=== PATIENT | female | born 1955 | race Caucasian/White ===

== ENCOUNTER 2020-12-08 09:43 | Outpatient (CLI) | payer OTHER, SELFPAY ==
--- NOTE | ~2020-12-08 | DEXA_ITS ---
Bone Density Report Name: Lynn Miranda Age: 65 Sex: Female Ethnicity: White Date of : 1955 Indication: postmenopausal; cancer; Referring Provider: Monisha Nichole Study: Bone densitometry was performed. Exam Date: December 08, 2020 Accession number: [id number] Bone Density: Region BMD T-score Z-score Classification AP Spine (L1-L4) 0.952 -0.9 0.8 Normal Femoral Neck (Left) 0.688 -1.4 0.0 Osteopenia Total Hip (Left) 0.814 -1.0 0.1 Normal Total Hip Bilateral Avg 0.831 -0.9 0.3 Normal Femoral Neck (Right) 0.661 -1.7 -0.3 Osteopenia Total Hip (Right) 0.846 -0.8 0.4 Normal World Health Organization criteria for BMD impression classify patients as: Normal (T-score at or above -1.0), Osteopenia (T-score between -1.0 and -2.5), or Osteoporosis (T-score at or below -2.5). 10-year Fracture Risk(1): Major Osteoporotic Fracture 9.0% Hip Fracture 1.0% Reported Risk Factors: [place] (), Neck BMD=0.661, BMI=24.4 (1) FRAX(R) Version 3.08. Fracture probability calculated for an untreated patient. Fracture probability may be lower if the patient has received treatment. Clinical Information Provided by Patient: Has used the following medications: Vitamin D, Calcium Has the following medical conditions: Cancer Patient maximum height was 63 Menopause Age: 55 Drinks caffeinated beverages Onset of menses at age 14 Number of children 2 Impression: The patient has low bone mass, based on the Right Femoral Neck T-score. The patient has an estimated ten-year risk of hip fracture of 1% and an estimated ten-year risk of major fracture of 9%, based on the WHO FRAX algorithm. Discussion: BONE DENSITY IS LOW AT ONE OR MORE SKELETAL SITES. This patient's lowest T-score is low at one or more skeletal sites. It meets the World Health Organization's (WHO) criteria for ?low bone mass? (T-score between -1.0 and -2.5). The patient's 10-year risk of fracture as calculated by FRAX is less than the threshold where pharmacological therapy is recommended by the National Osteoporosis Foundation (NOF). However, all treatment decisions require clinical judgment and consideration of individual patient factors, including patient preferences, comorbidities, previous drug use, risk factors not captured in the FRAX model (e.g., frailty, falls, vitamin D deficiency, increased bone turnover, interval significant decline in bone density) and possible under or overestimation of fracture risk by FRAX. The patient should follow a healthful lifestyle (good nutrition with adequate calcium and vitamin D, and appropriate weight-bearing exercise). Follow-Up: Consider repeating this study in 2 to 3 years to reassess this patient's status, or sooner if there is some new clinical indication. Reported by: CHANDANA on 12/08/2020 9:56:00 AM.
== END 2020-12-08 09:44 | disposition home or self-care (01) ==
LOC: ANHIMG 09:44
PROVIDERS: PCP Family Medicine; Visit Provider Student in an Organized Health Care Education/Training Program
DX: Z78.0 Asymptomatic menopausal state (principal); M85.89 Other specified disorders of bone density and structure, multiple sites
CPT/HCPCS: 77080

== ENCOUNTER 2022-12-10 07:46 | Outpatient (CLI) | payer MEDICARE, OTHER, SELFPAY ==
--- NOTE | ~2022-12-10 | DEXA_ITS ---
Bone Density Report Name: GAGANDEEP FRANCO Age: 67 Sex: Female Ethnicity: White Date of : 1955 Indication: postmenopausal; screening for osteoporosis; cancer; Referring Provider: MARLENY DAMON Study: Bone densitometry was performed. Exam Date: December 10, 2022 Accession number: [id number] Bone Density: Region BMD T-score Z-score Classification AP Spine(L1-L4) 0.949 -0.9 0.9 Normal Femoral Neck (Left) 0.659 -1.7 -0.2 Osteopenia Total Hip (Left) 0.774 -1.4 -0.1 Osteopenia Femoral Neck (Right) 0.697 -1.4 0.2 Osteopenia Total Hip (Right) 0.814 -1.1 0.2 Osteopenia Total Hip Mean 0.794 -1.3 0.1 Osteopenia World Health Organization criteria for BMD impression classify patients as: Normal (T-score at or above -1.0), Osteopenia (T-score between -1.0 and -2.5), or Osteoporosis (T-score at or below -2.5). 10-year Fracture Risk(1): Major Osteoporotic Fracture 9.6% Hip Fracture 1.2% Reported Risk Factors: [place] (), Neck BMD=0.659, BMI=24.1 (1) FRAX(R) Version 3.08. Fracture probability calculated for an untreated patient. Fracture probability may be lower if the patient has received treatment. Previous Exams: Region Exam Age BMD T-score BMD Change BMD Change Date g/cm2 vs Baseline vs Previous AP Spine (L1-L4) 12/10/2022 67 0.949 -0.9 -0.003 (-0.3%) -0.003 (-0.3%) 12/08/2020 65 0.952 -0.9 Total Hip(Left) 12/10/2022 67 0.774 -1.4 -0.040 (-4.9%) -0.040 (-4.9%) 12/08/2020 65 0.814 -1.0 Total Hip(Right) 12/10/2022 67 0.814 -1.1 -0.032 (-3.8%) -0.032 (-3.8%) 12/08/2020 65 0.846 -0.8 *Denotes significance at 95% confidence level, LSC for AP Spine = 0.022 g/cm2, LSC for Total Hip = 0.027 g/cm2 # Denotes dissimilar scan types or analysis methods Clinical Information Provided by Patient: Has used the following medications: Calcium Has the following medical conditions: Cancer Patient maximum height was 63.5 Menopause Age: 55 Drinks caffeinated beverages Onset of menses at age 15 Number of children 2 Impression: The patient has low bone mass, based on the Left Femoral Neck T-score. The patient has an estimated ten-year risk of hip fracture of 1.2% and an estimated ten-year risk of major fracture of 9.6%, based on the WHO FRAX algorithm. No significant bone loss was observed. Discussion: BONE DENSITY IS LOW AT ONE OR MORE SKELETAL SITES. This patient's lowest T-score is low at one or more skeletal
== END 2022-12-10 07:47 | disposition home or self-care (01) ==
LOC: ANHIMG 07:47
PROVIDERS: PCP Family Medicine; Visit Provider Obstetrics & Gynecology
DX: Z78.0 Asymptomatic menopausal state (principal); M85.89 Other specified disorders of bone density and structure, multiple sites
CPT/HCPCS: 77080

== ENCOUNTER 2024-12-11 08:23 | Outpatient (CLI) | payer MEDICARE, SELFPAY ==
--- NOTE | ~2024-12-11 | DEXA_ITS ---
Bone Density Report Name: GAGANDEEP FRANCO Age: 69 Sex: Female Ethnicity: White Date of : 1955 Indication: postmenopausal; screening for osteoporosis; cancer; Referring Provider: UNKNOWN, UNKNOWN Study: Bone densitometry was performed. Exam Date: December 11, 2024 Accession number: [id number] Bone Density: Region BMD T-score Z-score Classification AP Spine(L1-L4) 0.962 -0.8 1.2 Normal Femoral Neck (Left) 0.568 -2.5 -0.9 Osteoporosis Total Hip (Left) 0.809 -1.1 0.3 Osteopenia Femoral Neck (Right) 0.640 -1.9 -0.2 Osteopenia Total Hip (Right) 0.822 -1.0 0.4 Normal Femoral Neck Mean 0.604 -2.2 -0.6 Osteopenia Total Hip Mean 0.815 -1.0 0.3 Normal World Health Organization criteria for BMD impression classify patients as: Normal (T-score at or above -1.0), Osteopenia (T-score between -1.0 and -2.5), or Osteoporosis (T-score at or below -2.5). 10-year Fracture Risk: FRAX not reported because: Some T-score for Spine Total or Hip Total or Femoral Neck at or below -2.5 Clinical Information Provided by Patient: Has used the following medications: Calcium Has the following medical conditions: Cancer Patient maximum height was 63 Menopause Age: 52 Drinks caffeinated beverages Onset of menses at age 14 Number of children 2 Impression: The patient has osteoporosis, based on the Left Femoral Neck T-score. Discussion: INCREASED RISK OF FRACTURE. BONE DENSITY IS UNDESIRABLY LOW AT ONE OR MORE SKELETAL SITES, CONSISTENT WITH POSTMENOPAUSAL OSTEOPOROSIS. This patient's lowest T-score meets the World Health Organization's (WHO) criteria for osteoporosis at one or more sites (T-score -2.5 or below). In untreated patients, the risk of osteoporotic fracture increases approximately two-fold for each 1.0 SD decrease in T-score. Low bone density is not the only risk factor for fracture; also consider factors such as patient's age, frailty or poor health, risk of falling, risk of injury, previous osteoporotic fracture, family history of osteoporosis, cigarette smoking, low body weight, etc. Not everyone with low bone mineral density has osteoporosis; osteomalacia and other metabolic bone disorders should also be considered. Patients who have osteoporosis should be evaluated for specific diseases and conditions (secondary causes) that may cause or contribute to bone loss. The [place] [employer]ocrinologists (AACE) and National Osteoporosis Foundation (NOF) recommend pharmacologic intervention for all postmenopausal women whose T-score is in this range. The patient should follow a healthful lifestyle (good nutrition with adequate calcium and vitamin D, and appropriate weight-bearing exercise). Follow-Up: Consider a repeat BMD and Vertebral Fracture Assessment (VFA) exam in 2 years or sooner if medically necessary, to reassess this patient's status. Reported by: TEQUILA on 12/11/2024 8:49:00 AM. Reviewed, dictated and finalized at location A.
--- OUTSIDE RECORDS SUMMARY | 2024-12-11 08:45 | XMS_ITS | Clinical Summary ---
Author Organization [facility] Address [address] [place] [address] Care Team Providers Care Vessel Liner Name Role Phone Unavailable Primary Care Provider Unavailabl e Social History Tobacco Use Types Packs/Day Years Used Date Smoking Tobacco: Never Assessed Comments Unknown Sex and Gender Information Value Date Recorded Sex Assigned at Not on file Legal Sex Female 4:30 PM CDT Gender Identity Not on file Sexual Orientation Not on file Plan of Treatment Health Maintenance Due Date Last Done Comments Colorectal Cancer Screening Colonoscopy (10 Years) 1955 Hepatitis C 1975 DTaP, Tdap and Td Vaccines ( 1 - Tdap) 1976 Mammogram Screening 1997 Zoster Vaccines (1 of 2) 2007 Dexa Scan (General) 2022 Pneumococcal Vaccine: 65+ Ye ars (1 of 1 - PCV) 2022 COVID-19 Vaccine ( - 2023-2 5 season) 2024 Influenza Adult (#1) 2024 RSV Immunization or 60+ Years (1 - 1-dose 75+ series) 2032 Meningococcal B Vaccine Aged Out No l onger eligible based on patient's age to complete this topic Meningococcal Vaccine Aged Out No vivienne aleja eligible based on patient's age to complete this topic RSV Immunizations Under 20 Months Aged Out No longer eligible based on patient's age to complete this topic
--- OUTSIDE RECORDS SUMMARY | 2024-12-11 08:45 | XMS_ITS | Clinical Summary ---
Author Organization [facility] Address [address] [place] [address] Phone Care Team Providers Care Tai Chi Instructor Name Role Phone Amor Green MD Primary Care Provider [phone] Allergies Active Allergy Reactions Criticality Noted Date Comments Sulfa (Sulfonamide Antibiotics) Swelling Low 06/2015 Medications aspirin (MELANIE) 81 mg Oral Tab Take by mouth. Active Cephalexin 500 mg Tablet Take 250 mg by mouth. ONE A DAY FOR 3 MONTHS Active multivitamin (DAILY-DONTE) tablet Take 1 Tablet by mouth daily. Active CALCIUM CARBONATE ORAL Take by mouth. 1,ooo mg daily Active anastrozole (ARIMIDEX) 1 mg tabletIndication s:Malignant neoplasm of upper-outer quadrant of right breast in female, estrogen receptor positive (CMS/HCC) TAKE 1 TABLET BY MOUTH EVERY DAY 90 Tablet 1 08/20/2024 Active estradioL (ESTRACE) 0.01% (0.1 mg/g) vaginal cream Insert 1 Gram vaginally. 07/12/2024 Active pentoxifylline (TRENtal) 400 mg Extended Release tablet Take 1 Tablet (400 mg) by mouth 3 times daily. 30 Tablet 5 08/22/2024 Active vitamin E 1,000 unit Capsule Take 1,000 Units by mouth daily. Active Active Problems Patient Care Coordination No te Formatting of this note migh t be different from the original. Primary Care: Amor Green MD Referring Provider: Henrietta Rose MD [address] [place] [address] Other: Problem Noted Date Diagnosed Date Cellulitis of breast 07/15/2024 Leukocytosis (leucocytosis) 07/15/2024 S/P bilateral mastectomy 12/08/2015 BRCA negative 10/11/2014 Genetic testing 10/03/2013 Overview (11/07/2013): brca neg, ramandeep neg Breast Cancer, Right UOQ (174.4) T3N2 right 09/02 Overview (03/21/2012): Right Breast Pathologic Stage IIIA (T3 N2a Mx) ER/ME(+), H2N(-), Ki67 11% MRM/Recon (08/30/11 - Yanick/David): 7 cm G2 IDC, 65% DCIS, (-)mar (8 mm post), extensive ALI, 03/20 AxLNs (1.2 cm, MAGUI) Med Onc ([facility]man): DD AC + Taxol (fini 01/11/12) RT (Baglan): 02/08-03/21/12 Right Chestwall 5040 cGy in 180 cGy x 28 fx Right SC/AxApex 5040 cGy in 180 cGy x 28 fx PATHOLOGY: Date: 07/14/11 bx, 08/30/11 bilat mast with R SLN and ALND Breast:right Cell type: IDC, 7.0 cm ER: (+) 8/8 ME: (+) 7/8 Ki67: 11% Her2 kwame: (not) amplified Grade: IG (NH6) Lymph node status:(+) 6/8 SLN, 0/10 ALN = 18 with MAGUI LVI: (not) present Staging: T3 N2 Mx Stage: IIIa Breast cancer 07/28/2011 Overview (07/28/2011): Invasive ductal with extensive DCIS right breast clinically T1 or T2 N0 Resolved Problems Problem Noted Date Diagnosed Date Resolved Date Pre-op testing 08/13/2011 10/11/2014 Invasive ductal carcinoma of breast 07/28/2011 Encounters Date Type Department Care Team Description 12/03/[address] [facility] Oncology and Hematology - [place] [address] [address] Julia Whitaker V., DO Malignant neoplasm of upper-outer quadrant of right breast in female, estrogen receptor positive (CMS/HCC) (Primary Dx); History of aromatase inhibitor therapy; Screening for osteoporosis; Encounter for osteoporosis screening in asymptomatic postmenopausal patient 11/20/2024 External Device Data ST[facility] ABSTRACTION Provider, Abstract 11/13/2024 External Device Data [facility] ABSTRACTION Provider, Abstract 11/13/2024 External Device Data ST[facility] ABSTRACTION Provider, Abstract 10/25/2024 External Device Data [facility] ABSTRACTION Provider, Abstract 10/16/2024 External Device Data ST[facility] ABSTRACTION Provider, Abstract 10/09/2024 External Device Data STL ABSTRACTION Provider, Abstract from Last 3 Months Immunizations Immunization Administration Dates Next Due Influenza Seasonal Unspecified Formulation IM Family History Medical History Relation Name Comments Ovarian Cancer Maternal Cousin 1 50's Breast Cancer Maternal Cousin 2 50's Colon Cancer Maternal Grandmother 80's Diabetes Maternal Grandmother Colon Cancer Mother 60's Breast Cancer Other 1 second cousin 40's Breast Cancer Other 2 2nd cousin 50' s Breast Cancer Paternal Grandmother Relation Name Status Comments Maternal Cousin 1 Maternal Cousin 2 Maternal Grandmother Mother Other 1 Other 2 Paternal Grandmother Social History Tobacco Use Types Packs/Day Years Used Date Smoking Tobacco: Never Smokeless Tobacco: Never Tobacco Cessation:Counseling Given: Not Answered Alcohol Use Standard Drinks/Week Comments Yes 0 (1 standard drink = 0.6 oz pur e alcohol) moderate Feeling Safe Answer Date Recorded Within the last year, have y ou been afraid of your partner or ex-partner? No 05/24/2024 Emotionally Abused Not on file 05/24/2024 Within the last year, have y ou been kicked, hit, slapped, or otherwise physically hurt by your partner or ex-partner? No 05/24/2024 Sexually Abused Not on file 05/24/2024 Feeling Safe Answer Date Recorded Are you in a relationship wi th someone who hurts you emotionally and/or physically? No 09/06/2024 Food Insecurity Answer Date Recorded Social/Environmental Concerns No concerns Transportation Needs Answer Date Record ed Social/Environmental Concerns No concerns Housing Stability Answer Date Recorded Social/Environmental Concerns No concerns Utility Needs Answer Date Recorded Social/Environmental Concerns No concerns Comments No Sex and Gender Information Value Date Recorded Sex Assigned at Female 07/27/2024 6:39 AM CDT Legal Sex Female 6:04 AM ANALYZER SALES Gender Identity Female 07/27/2024 6:39 AM CDT Sexual Orientation Straight 07/27/2024 6: 39 AM CDT Occupation Industry Job Start Date Job End Date Not on file Not on file Not on file Not on file Not on file Not on file Not on file Not on file Last Filed Vital Signs Vital Sign Reading Time Taken Comments Blood Pressure 138/74 09/06/2024 7:00 AM ANALYZER SALES Pulse 74 09/06/2024 7:00 AM ANALYZER SALES Temperature 36.4 C (97.6 F) 09/06/2024 7:00 AM ANALYZER SALES Respiratory Rate 16 09/06/2024 7:00 AM ANALYZER SALES Oxygen Saturation 99% 08/22/2024 8:12 AM ANALYZER SALES Inhaled Oxygen Concentration - - Weight 63.2 kg (139 lb 6.4 oz) 09/06/2024 7:00 A M ANALYZER SALES Height 161.3 cm (5' 3.5 ) 08/22/2024 8:12 AM ANALYZER SALES Body Mass Index 24.31 08/22/2024 8:12 AM ANALYZER SALES Plan of Treatment Upcoming Encounters Date Type Department Care Team (Late st Contact Info) Description 07/11/2025 10:00 AM CDT Office Visit [facility] [address] [place] [address] Julia Whitaker DO [address] [place] [address] Health Maintenance Due Date Last Done Comments DTAP/TDAP/TD VACCINES (1 - Tdap) 1976 FIT-DNA Q 3 years 2002 FIT/FOBT Q 1 year 2002 Flex Sig/CT Colonography Q 5 years 2002 PNEUMOCOCCAL VACCINE 50+ YEA RS (1 of 1 - PCV) 2007 BREAST CANCER SCREENING 01/17/2018 01/18/20 17, 12/08/2015, 12/08/2015, Additional history exists ZOSTER VACCINE (2 of 3) 11/26/2019 10/01/2019 INFLUENZA VACCINE (#1) 2024 , 06/07/2020, 08/21/2014, Additional history exists COVID-19 Vaccine (3 - 2023-2 5 season) 2024 01/13/2021, 12/18/2020 RSV VACCINE (60+ or ) (1 - 1-dose 75+ series) 2032 COLORECTAL SCREENING 09/02/2033 09/02/2023, 09/02/2023, 09/01/2018, Additional history exists Colorectal Cancer Screening 09/02/2033 OSTEOPOROSIS SCREENING Completed 12/10/2022, 2011 Medical Devices Implanted Type Area Web Applications Programmer Device Identifier Shelf Expiration Date Model / Serial / Lot Port Pwrprt Slim Chrnflx Cath 6fr [id number] Implanted:Qty: 1 on 10/18/2011 by Ladonna Arroyo MD at [facility] Right: Neck CR BARD- ACCESS SYS 03/18/2016 [id number] / / [id number] Procedures Procedure Name Priority Date/Time Associated Diagnosis Comments XR DEXA BONE DENSITY AXIAL 1 OR MORE SITES Routine 06/20/2012 9:48 AM CDT Breast cancer (CMS/HCC) Special screening for osteoporosis MAMMO DIAGNOSTIC UNI RIGHT W OR WO CAD Routine 07/14/2011 1:46 PM CDT Abnormal mammogram from Last 3 Months or Most Recently Relevant to Health Maintenance Results * XR DEXA BONE DENSITY AXIAL 1 OR MORE SITES (06/20/2012 9:48 AM CDT) Anatomical Region Laterality Modality Computed Radiogr aphy 06/20/2012 9:47 AM CDT Impressions 06/20/2012 9:54 AM CDT IMPRESSION: Lumbar spine: This patient's bone mineral density of the spine is normal when compared to the normal range of young adults. The patient is at low risk for a compression fracture. Hips: This patient's bone mineral density of the femoral neck is osteopenic when compared to the normal range of young adults. The patient is at low risk for a hip fracture. Comments: None. Detailed report to follow. Dictated by Dr. Evens Garcia MD Narrative 06/20/2012 9:54 AM CDT Examination: Bone Density Study (DEXA) Clinical History: 57 year-old postmenopausal female. Findings: Lumbar Spine ( L 1-4 ) spine bone mineral density is 1.23 g/sq cm and corresponds to a T-score of 0.4. Femoral neck densities: Left femoral neck bone mineral density is 0.85 g/sq cm and corresponds to a T-score of -1.3. Right femoral neck bone mineral density is 0.85 g/sq cm and corresponds to a T-score of -1.3. Average femoral neck bone mineral density is 0.85 g/sq cm and corresponds to a T-score of -1.3. Procedure Note Evens Garcia MD - 06/20/2012 Examination: Bone Density Study (DEXA) Clinical History: 57 year-old postmenopausal female. Findings: Lumbar Spine ( L 1-4 ) spine bone mineral density is 1.23 g/sq cm and corresponds to a T-score of 0.4. Femoral neck densities: Left femoral neck bone mineral density is 0.85 g/sq cm and corresponds to a T-score of -1.3. Right femoral neck bone mineral density is 0.85 g/sq cm and corresponds to a T-score of -1.3. Average femoral neck bone mineral density is 0.85 g/sq cm and corresponds to a T-score of -1.3. IMPRESSION IMPRESSION: Lumbar spine: This patient's bone mineral density of the spine is normal when compared to the normal range of young adults. The patient is at low risk for a compression fracture. Hips: This patient's bone mineral density of the femoral neck is osteopenic when compared to the normal range of young adults. The patient is at low risk for a hip fracture. Comments: None. Detailed report to follow. Dictated by Dr. Evens Garcia MD Julia Whitaker DO DIAGNOSTIC IMAGING ORDERABL ES Final Result * MAMMO DIGITAL DIAG UNI RIGHT (07/14/2011 1:46 PM CDT) Anatomical Region Laterality Modality Breast Right Mammography 07/14/2011 1:45 PM CDT Impressions 07/15/2011 7:52 AM CDT IMPRESSION: Status post a sonographically guided core biopsy of a mass with calcifications in the upper-outer right breast. Pathology pending. Narrative 07/15/2011 7:52 AM CDT SONOGRAPHICALLY GUIDED CORE BIOPSY History: Mass with calcifications upper outer right breast on outside exam Sonographically guided core biopsy of a hypoechoic mass with calcifications in the upper outer right breast was performed. The overlying skin was cleansed with Betadine. 1% lidocaine buffered with sodium bicarbonate was injected for superficial anesthesia. Deep anesthesia was obtained with 2% lidocaine with epinephrine. A small 4 mm skin cassi was made with 11 blade scalpel. Under sonographic guidance, a 10-gauge vacuum assisted core biopsy needle was inserted through the skin cassi and positioned adjacent to the mass. Multiple cores were obtained. Cores were placed in a vial of physiologic saline. Formalin was added at the end of the exam and the specimen sent to pathology. A post biopsy localization clip was deployed under sonographic guidance. Followup two view mammogram demonstrated the clip to be in satisfactory position. A specimen radiograph of the cores was obtained demonstrating calcifications in at least one of the cores. After the biopsy was completed, pressure was held over the site until all visible signs of bleeding had subsided. The incision was closed with Dermabond and a Steri-Strip. Icepack was given for comfort. Postbiopsy instructions were reviewed with the patient. She left the breast center in good condition. Procedure Note Mtia Loza MD - 07/15/2011 SONOGRAPHICALLY GUIDED CORE BIOPSY History: Mass with calcifications upper outer right breast on outside exam Sonographically guided core biopsy of a hypoechoic mass with calcifications in the upper outer right breast was performed. The overlying skin was cleansed with Betadine. 1% lidocaine buffered with sodium bicarbonate was injected for superficial anesthesia. Deep anesthesia was obtained with 2% lidocaine with epinephrine. A small 4 mm skin cassi was made with 11 blade scalpel. Under sonographic guidance, a 10-gauge vacuum assisted core biopsy needle was inserted through the skin cassi and positioned adjacent to the mass. Multiple cores were obtained. Cores were placed in a vial of physiologic saline. Formalin was added at the end of the exam and the specimen sent to pathology. A post biopsy localization clip was deployed under sonographic guidance. Followup two view mammogram demonstrated the clip to be in satisfactory position. A specimen radiograph of the cores was obtained demonstrating calcifications in at least one of the cores. After the biopsy was completed, pressure was held over the site until all visible signs of bleeding had subsided. The incision was closed with Dermabond and a Steri-Strip. Icepack was given for comfort. Postbiopsy instructions were reviewed with the patient. She left the breast center in good condition. IMPRESSION IMPRESSION: Status post a sonographically guided core biopsy of a mass with calcifications in the upper-outer right breast. Pathology pending. us Shana Herndon MD MAMMO ORDERABLES Final Result from Last 3 Months or Most Recently Relevant to Health Maintenance Insurance AET[employer] [facility] RX A[employer] Medicare Part D Advance Directives For more information, please contact: [phone] * Full Code (Latest Code Status on File) Date Activated Date Inactivated Comments 07/15/2024 1:38 PM 07/16/2024 1:02 PM * Full Code Date Activated Date Inactivated Comments 02/04/2012 6:51 AM 02/04/2012 11:18 AM * Full Code Date Activated Date Inactivated Comments 02/04/2012 6:50 AM 02/04/2012 6:51 AM * Full Code Date Activated Date Inactivated Comments 10/18/2011 8:53 AM 10/18/2011 1:44 PM Care Teams Tai Chi Instructor Relationship Specialty Start Date End Date Amor Green MD PCP - General Family Practice 10/19/13
--- OUTSIDE RECORDS SUMMARY | 2024-12-11 08:45 | XMS_ITS | Referral Summary ---
Author Organization [facility] Address [address] [place] [address] Care Team Providers Care Digital Imaging Specialist Name Role Phone Amor Green MD Primary Care Provider [phone] Source Comments [facility],non-owned Affiliates and Associated Physician Practices is amultiple site organization consisting of ambulatory clinics and hospital sitesin [place], [place], [place] and [place]. This disclosure is being madepursuant to the Care Everywhere program and may not contain all information available regarding this patient. Last updated [facility] Allergies Active Allergy Reactions Criticality Noted Date Comments Sulfa Drugs 09/06/2017 Medications * Be aware that medications may not be up to date on this document. Alwaysverify current medications with the patient. Medication Sig Dispensed Refills Start Date End Date Status ANASTROZOLE PO Active cephalexin (KEFLEX) 500 MG capsule Take 500 mg by mouth once daily Active Aspirin (ASPIR-81) 81 MG Active benzonatate (TESSALON) 200 MG capsuleIndications:Acut e nasopharyngitis (common cold) Take 1 capsule by mouth 3 times daily as needed for Cough 30 capsule 09/06/2017 Active Social History Tobacco Use Types Packs/Day Years Used Date Smoking Tobacco: Never Assessed Sex and Gender Information Value Date Recorded Sex Assigned at Not on file Gender Identity Not on file Sexual Orientation Not on file Last Filed Vital Signs Vital Sign Reading Time Taken Comments Blood Pressure 114/76 09/06/2017 9:35 AM WATER RESOURCE ENGINEER Pulse 91 09/06/2017 9:35 AM WATER RESOURCE ENGINEER Temperature 36.8 C (98.2 F) 09/06/2017 9:35 AM WATER RESOURCE ENGINEER Respiratory Rate - - Oxygen Saturation - - Inhaled Oxygen Concentration - - Weight 59 kg (130 lb) 09/06/2017 9:35 AM WATER RESOURCE ENGINEER Height 161.3 cm (5' 3.5 ) 09/06/2017 9:35 AM WATER RESOURCE ENGINEER Body Mass Index 22.67 09/06/2017 9:35 AM WATER RESOURCE ENGINEER Plan of Treatment Not on file Care Teams Digital Imaging Specialist Relationship Specialty Start Date End Date Amor Green MD [address] [place] [address] [id number] PCP - General Internal Medicine 09/06/17
--- OUTSIDE RECORDS SUMMARY | 2024-12-11 08:45 | XMS_ITS | Clinical Summary ---
Author Organization [employer] Address [address] [address] Care Team Providers Care Cab Supervisor Name Role Phone Amor Green MD Primary Care Provider [phone] Source Comments [facility],non-owned Affiliates and Associated Physician Practices is amultiple site organization consisting of ambulatory clinics and hospital sitesin [place], [place], [place] and [place]. This disclosure is being madepursuant to the Care Everywhere program and may not contain all information available regarding this patient. Last updated 18.[facility] Allergies Active Allergy Reactions Criticality Noted Date [...] Comments Blood Pressure 114/76 09/06/2017 9:35 AM INDUSTRIAL ORDER CLERK Pulse 91 09/06/2017 9:35 AM INDUSTRIAL ORDER CLERK Temperature 36.8 C (98.2 F) 09/06/2017 9:35 AM INDUSTRIAL ORDER CLERK Respiratory Rate - - Oxygen Saturation - - Inhaled Oxygen Concentration - - Weight 59 kg (130 lb) 09/06/2017 9:35 AM INDUSTRIAL ORDER CLERK Height 161.3 cm (5' 3.5 ) 09/06/2017 9:35 AM INDUSTRIAL ORDER CLERK Body Mass Index 22.67 09/06/2017 9:35 AM INDUSTRIAL ORDER CLERK Plan of Treatment Health Maintenance Due Date Last Done Comments BONE DENSITY TESTING 1955 COLOGUARD (AGES 45-75) - COL ON CA SCREENING 1955 COLON MONITORING 1955 COLONOSCOPY - COLON CA SCREENING 1955 CT COLONOGRAPHY - COLON CA SCREENING 1955 Colorectal Cancer Screening 1955 FIT - COLON CA SCREENING 1955 FLEX SIG - COLON CA SCREENING 1955 LIPID TESTING 1955 MAMMOGRAM 1955 HEPATITIS C SCREENING 05/24/1975 DTAP/TDAP/TD VACCINES (1 - Tdap) 1976 PNEUMOCOCCAL VACCINE 50+ (1 of 1 - PCV) 2007 ZOSTER VACCINE (1 of 2) 2007 COVID-19 VACCINE ( - 2023-2 5 season) 2024 INFLUENZA VACCINE (#1) 2024 DEPRESSION SCREENING 10/03/2024 Respiratory Syncytial Virus (RSV) Vaccine Pt: or over 60 yrs (1 - 1-dose 75+ series) 2032 HEPATITIS B VACCINE Aged Out No longe r eligible based on patient's age to complete this topic HIB VACCINE Aged Out No longer eligi ble based on patient's age to complete this topic HPV VACCINE Aged Out No longer eligi ble based on patient's age to complete this topic MENINGOCOCCAL (Group B) VACCINE Aged Out No longer eligible based on patient's age to complete this topic MENINGOCOCCAL VACCINE Aged Out No vivienne aleja eligible based on patient's age to complete this topic Care Teams Cab Supervisor Relationship Specialty Start Date End Date Amor Green MD [address] [place] [id number] PCP - General Internal Medicine 09/06/17
--- OUTSIDE RECORDS SUMMARY | 2024-12-11 08:45 | XMS_ITS ---
[facility] Organization [facility] Address [address] [place] [address] Phone Care Team Providers Care Nursery [employer] Attendant Name Role Phone Amor Green MD Primary Care Provider [phone] Active Problems Patient Care Coordination No te Formatting of this note migh t be different from the original. Primary Care: Amor Green MD Referring Provider: Henrietta Rose MD [address] [place] [address] Other: Problem Noted Date Diagnosed Date Cellulitis of breast 07/15/2024 Leukocytosis (leucocytosis) 07/15/2024 S/P bilateral mastectomy 12/08/2015 BRCA negative 10/11/2014 Genetic testing 10/03/2013 Overview (11/07/2013): brca neg, ramandeep neg Breast Cancer, Right UOQ (174.4) T3N2 right 09/02 Overview (03/21/2012): Right Breast Pathologic Stage IIIA (T3 N2a Mx) ER/DE(+), H2N(-), Ki67 11% MRM/Recon (08/30/11 - Yanick/David): [...] type: IDC, 7.0 cm ER: (+) 8/8 DE: (+) 7/8 Ki67: 11% Her2 kwame: (not) amplified Grade: IG (NH6) Lymph node status:(+) 6/8 SLN, 0/10 ALN = 6/18 with MAGUI LVI: (not) present Staging: T3 N2 Mx Stage: IIIa Breast cancer 07/28/2011 Overview (07/28/2011): 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 Past Treatment and Therapy Plans No past plan information found. Lifetime Dose Tracking * Chemical Lifetime Dose Automatic Entry Manual Entr y doxorubicin 237.747 mg/m2 (400 mg) 237.747 mg/m2 (400 mg) 0 mg/m2 (0 mg) Effective Dose 7.38 mSv 7.38 mSv 0 mSv Total DLP 280.92 DLP 280.92 DLP 0 DLP CTDIvol Max 8.41 mGy 8.41 mGy 0 mGy CTDIvol Min 5.06 mGy 5.06 mGy 0 mGy Resolved Problems Problem Noted Date Diagnosed Date Resolved Date Pre-op testing 08/13/2011 10/11/2014 Invasive ductal carcinoma of breast 07/28/2011
--- OUTSIDE RECORDS SUMMARY | 2024-12-11 08:45 | XMS_ITS | Patient Health Summary ---
Author Organization [facility] Address [address] [place] [address] Care Team Providers Care Stamps Or Coins Salesperson Name Role Phone Amor Green MD Primary Care Provider [phone] Note from [facility],non-owned Affiliates and Associated Physician Practices is amultiple site organization consisting of ambulatory clinics and hospital sitesin [place], [place], [place] and [place]. This disclosure is being madepursuant to the Care Everywhere program and may not contain all information available regarding this patient. Last updated 18.[facility] Allergies * Sulfa Drugs Medications * Be aware that medications may not be up to date on this document. Alwaysverify current medications with the patient. * ANASTROZOLE PO * cephalexin (KEFLEX) 500 MG capsule Take 500 mg by mouth once daily * Aspirin (ASPIR-81) 81 MG * benzonatate (TESSALON) 200 MG capsule(Started 09/06/2017) Take 1 capsule by mouth 3 times daily as needed for Cough Social History Tobacco Use Types Packs/Day Years Used Date Smoking Tobacco: Never Assessed Sex and Gender Information Value Date Recorded Sex Assigned at Not on file Gender Identity Not on file Sexual Orientation Not on file Last Filed Vital Signs Vital Sign Reading Time Taken Comments Blood Pressure 114/76 09/06/2017 9:35 AM DIRECTOR MONEY Pulse 91 09/06/2017 9:35 AM DIRECTOR MONEY Temperature 36.8 C (98.2 F) 09/06/2017 9:35 AM DIRECTOR MONEY Respiratory Rate - - Oxygen Saturation - - Inhaled Oxygen Concentration - - Weight 59 kg (130 lb) 09/06/2017 9:35 AM DIRECTOR MONEY Height 161.3 cm (5' 3.5 ) 09/06/2017 9:35 AM DIRECTOR MONEY Body Mass Index 22.67 09/06/2017 9:35 AM DIRECTOR MONEY Procedures * STREP A SCREEN - POINT OF CARE (AMB) STL(Performed 09/06/2017) Performed for Acute nasopharyngitis (common cold) Results * STREP A SCREEN - POINT OF CARE (AMB) STL (09/06/2017) Strep A Rapid POCT Negative Negative Strep A Internal Control Present Lot # [id number] Expiration Date 6631222 Throat ENTIRE THROAT (SURFACE REGION OF NECK) / Unknown 09/06/2017 Becky Dye TRACING LATHE SET UP OPERATOR-[facility] - POINT O F CARE ORDERABLES Care Teams Stamps Or Coins Salesperson Relationship Specialty Start Date End Date Amor Green MD [address] [place] [id number] PCP - General Internal Medicine 09/06/17
== END 2024-12-11 08:24 | disposition home or self-care (01) ==
LOC: CHSIMG 08:27
PROVIDERS: PCP Family Medicine
DX: C50.411 Malignant neoplasm of upper-outer quadrant of right female breast (principal); Z17.0 Estrogen receptor positive status [ER+]; Z78.0 Asymptomatic menopausal state
CPT/HCPCS: 77080